=== PATIENT | male | born 1955 | race Caucasian/White ===

== ENCOUNTER → 2016-11-10 | Day surgery (SDC) | payer OTHER ==
[~2016-11-10] MED LIST: IV RINGERS,LACTATED 1000ML 1,000 ML IV SCH; LIDOCAINE 2% PF Vial for OR 5 ML VIAL. ONE; LISI1TAB7 PO; PANT40TA5 PO; PROPOFOL 0 ML IV ONE; PROPOFOL 20 ML IV ONE
[2016-11-10 12:45] VITALS: BP 118/82
--- NOTE | 2016-11-13 14:45 | PATHOLOGY ---
PATHOLOGY REPORT * * * * * * * * FINAL DIAGNOSIS: Sigmoid colon polypectomy, 15 cm: - Serrated adenoma. COMMENT: There is no high-grade dysplasia or evidence of malignancy. (CHANDRIKAM:; d/t: 11/13/16) REPORT ELECTRONICALLY SIGNED BY: Hector Long M.D. DATE/TIME: 11/13/2016 14:44 * * * * * * * * GROSS PATHOLOGY: Received in formalin labeled "Maida Sandoval, 15 cm sigmoid polypectomy," are six segments of comer soft tissue measuring 1.4 x 1.3 x 0.2 cm in aggregate dimensions and ranging from 0.3 to 0.8 cm in maximum dimension. The specimen is submitted entirely in cassette A1. Also received within the specimen container is an additional polypoid segment of red-brown soft tissue measuring 1.2 x 0.6 x 0.4 cm in greatest dimensions. The surgical margin is inked. The specimen is submitted entirely in cassette A2. (CAA; 11/10/2016) INITIAL CPT CODE(S): A; 00383 Professional services performed [place] [employer] [address] Technical services performed by [employer] at [address] [place] [address], [facility] [address] [address]. SPECIMEN(S) RECEIVED: A.15cm sigmoid polyp CLINICAL HISTORY: Polyp PATIENT: MAIDA SANDOVAL /AGE: 110/04/1955 (Age: 61) PATIENT #: [id number] ALT CASE #: SPECIMEN COLLECTION DATE: 11/10/2016 SPECIMEN RECEIVED DATE: 11/10/2016 [facility] - [address] [place] [address] - PHONE: [phone] * * * END OF REPORT * * *
== END | disposition home or self-care (01) ==
LOC: ENDOS 10:53
PROVIDERS: ATTEND Surgery
DX: D12.5 Benign neoplasm of sigmoid colon (principal); I10 Essential (primary) hypertension; M19.90 Unspecified osteoarthritis, unspecified site; K21.9 Gastro-esophageal reflux disease without esophagitis; Z87.39 Personal history of other diseases of the musculoskeletal system and connective tissue
CPT/HCPCS: 45330; J2704; 88305

== ENCOUNTER → 2021-11-07 | Outpatient (CLI) | payer OTHER, MEDICARE ==
[2016-11-10 12:45] VITALS: BP 118/82
[~2021-11-07] MED LIST changes: +IOHEXOL 350 MG/ML 100 ML VIAL. IV ONE; -IV RINGERS,LACTATED 1000ML 1,000 ML IV SCH; -LIDOCAINE 2% PF Vial for OR 5 ML VIAL. ONE; +LISI1TAB39 PO; -LISI1TAB7 PO; -PANT40TA5 PO; +PANT40TA77 PO; -PROPOFOL 0 ML IV ONE; -PROPOFOL 20 ML IV ONE
--- NOTE | 2021-11-07 12:24 | RAD ---
EXAM: CT angiography of the chest with intravenous contrast. HISTORY: Aortic aneurysm. TECHNIQUE: Computed tomographic images of the chest were obtained following the administration of int ravenous contrast according to angiography protocol. Multiplanar reformatting was performed and three dimensional maximum intensity projection images were obtained. *One or more of the following individualized dose reduction techniques were utilized for this examina tion: 1. Automated exposure control. 2. Adjustment of the mA and/or kV according to patient size. 3. Use of iterative reconstruction technique. COMPARISON: 07/25/2018. FINDINGS: There is an ascending aortic aneurysm measuring 5.1 cm in maximum dimension, minimally incr eased compared to a measurement of 5.0 cm on the prior exam when utilizing the same measurement techn ique. There is no dissection. There is a standard aortic arch branching pattern. There is a tiny susp ected cyst or nodule within the right thyroid lobe, without a clear correlate on the prior exam. This is likely benign based on size. There is no lymphadenopathy. There is no pneumothorax or pleural eff usion. There is no infiltrate or suspicious pulmonary nodule. There is a small cyst within the left h epatic lobe. The gallbladder, pancreas, spleen, adrenal glands and upper poles of the kidneys are unr emarkable. There is no acute or suspicious osseous finding. There are degenerative changes throughout the spine. IMPRESSION: 1. 5.1 cm ascending aortic aneurysm, minimally increased compared to the prior exam. 2. No acute thoracic finding. Electronically signed by: Deya Lemus MD (11/07/2021 12:21 PM) [id number]
--- NOTE | 2021-11-08 08:07 | CARD ---
MR#: [id number] Date of Study: 11/07/2021 Ordering Physician: JUAN BAZZI, Referring Physician: JUAN BAZZI, Tech: Lacho Au [facility] APPROVED REPORT EXAM: Two-dimensional and M-mode echocardiogram with Doppler and color Doppler. Other Information Quality : GoodHR: 65bpm Rhythm : NSR INDICATION Ascending aortic anuerysm RISK FACTORS Hypertension Family History 2D DIMENSIONS IVSd1.2 (0.7-1.1cm)Aortic Root(2D)4.4 (2.0-3.7cm) LVDd5.5 (3.9-5.9cm)PWd1.0 (0.7-1.1cm) LVDs2.9 (2.5-4.0cm)FS (%) 47.7 % SV117.5 mlLVEF(%)78.5 (>50%) M-Mode DIMENSIONS Aortic Root5.00 (2.2-3.7cm) Aortic Valve AoV Peak Denzel.143.0cm/sAoV VTI28.3cm AO Peak GR.8.2mmHgLVOT Peak Denzel.96.8cm/s LVOT VTI 20.87cmAO Mean GR.4mmHg AI P 1/2 [id number] Mitral Valve MV E Yieqgruc35.7cm/sMV DECEL [id number] MV A Qasfokxy27.0cm/sMV E Mean Gr.1mmHg MV KIM15hnX/A Ratio0.6 MVA (PHT)2.49cm2 TDI E/Lateral E'6.9E/Medial E'9.2 Tricuspid Valve TR P. Omtyabma835ni/sTR Peak Gr.26mmHg Pulmonary Vein S1 Qofpkome71.3cm/sD2 Ipgfrqug55.5cm/s LEFT VENTRICLE The left ventricle is normal size. There is normal left ventricular wall thickness. The left ventricu lar systolic function is normal. The ejection fraction is 60 to 65%. There is normal LV segmental wal l motion. Transmitral Doppler flow pattern is Grade I-abnormal relaxation pattern. No left ventricle thrombus noted on this study. There is no ventricular septal defect visualized. There is no left vent ricular aneurysm. There is no mass noted in the left ventricle. RIGHT VENTRICLE The right ventricle is normal size. There is normal right ventricular wall thickness. The right ventr icular systolic function is normal. ATRIA The left atrium is mildly dilated. The right atrium size is normal. The interatrial septum is intact with no evidence for an atrial septal defect or patent foramen ovale as noted on 2-D or Doppler imagi ng. AORTIC VALVE The aortic valve is calcified but opens well. Doppler and Color Flow revealed mild aortic regurgitati on. There is no significant aortic valvular stenosis. There is no aortic valvular vegetation. MITRAL VALVE The mitral valve is normal in structure and function. There is no evidence of mitral valve prolapse. There is no mitral valve stenosis. Doppler and Color-flow revealed trace mitral regurgitation. TRICUSPID VALVE The tricuspid valve is normal in structure and function. Doppler and Color Flow revealed no tricuspid valve regurgitation noted. There is no tricuspid valve prolapse or vegetation. There is no tricuspid valve stenosis. PULMONIC VALVE The pulmonary valve is normal in structure and function. Doppler and Color Flow revealed no pulmonic valvular regurgitation. There is no pulmonic valvular stenosis. GREAT VESSELS The aortic root is enlarged at 4.4 cm. The ascending aorta is enlarged at 5.0 cm. The pulmonary arter y is normal. The IVC is normal in size and collapses >50% with inspiration. PERICARDIAL EFFUSION There is no pleural effusion. There is no evidence of significant pericardial effusion. Critical Notification Critical Value: No <Conclusion> The left ventricular systolic function is normal. The ejection fraction is 60 to 65%. There is normal LV segmental wall motion. Transmitral Doppler flow pattern is Grade I-abnormal relaxation pattern. Mild aortic regurgitation. Trace mitral regurgitation. The ascending aorta is enlarged at 5.0 cm. There is no evidence of significant pericardial effusion. Signed by : Zeke Urrutia, Electronically Approved : 11/08/2021 08:06:54
== END ==
LOC: ECHO 10:32
PROVIDERS: ATTEND Internal Medicine Cardiovascular Disease
DX: I35.1 Nonrheumatic aortic (valve) insufficiency (principal); I71.9 Aortic aneurysm of unspecified site, without rupture; K76.89 Other specified diseases of liver; M47.819 Spondylosis without myelopathy or radiculopathy, site unspecified
CPT/HCPCS: 71275; 93306; Q9967; C8929